=== PATIENT | male | born 1960 | race African-American/Black ===

== ENCOUNTER 2016-07-03 08:38 | Observation (INO) | payer OTHER ==
[2016-07-03] MEDS ORDERED: ASPIRIN 81 MG TABLET, CHEWABLE PO ONE (08:54)
[2016-07-03 09:46] LABS: ABSOLUTE BASOPHILS # (AUTO) 0.1 10^3/uL (0.0-0.2); ABSOLUTE EOSINOPHILS # (AUTO) 0.2 10^3/uL (0.0-0.6); ABSOLUTE LYMPHOCYTES (AUTO) 1.4 10^3/uL (0.5-4.7); ABSOLUTE MONOCYTES (AUTO) 0.5 10^3/uL (0.1-1.4); ABSOLUTE NEUT (AUTO) 1.9 10^3/uL (1.7-8.2); BASOPHILS % (AUTO) 1.6 % (0-2); EOSINOPHILS % (AUTO) 3.9 % (0-6); HEMATOCRIT 46.5 % (37.9-51.0); HEMOGLOBIN 15.7 g/dL (13.5-17.0); HGB HCT DIFFERENCE 0.6; MEAN CORPUSCULAR HEMOGLOBIN 27.5 pg (27.0-33.4); MEAN CORPUSCULAR HGB CONC 33.8 g/dL (32.0-36.0); MEAN CORPUSCULAR VOLUME 82 fl (80-97); MONOCYTES % (AUTO) 12.6 % (3-13); RED CELL DISTRIBUTION WIDTH 13.6 % (11.5-14.0); SEGMENTED NEUTROPHILS % (AUTO) 47.9 % (42-78)
[2016-07-03] MEDS ORDERED: NITROGLYCERIN 2% OINTMENT 1 GM PACKET TP ONE (09:50)
[2016-07-03 09:52] LABS: PROTHROMBIN TIME 13.1 SEC (11.4-15.4)
[2016-07-03 10:03] LABS: D-DIMER 0.29 ug/mL (0.00-0.50)
[2016-07-03 10:06] LABS: ALANINE AMINOTRANSFERASE 33 U/L (21-72); ALBUMIN 4.9 g/dL (3.5-5.0); ALKALINE PHOSPHATASE 39 U/L (38-126); ANION GAP 12 (5-19); ASPARTATE AMINO TRANSFERASE 28 U/L (17-59); BILIRUBIN,TOTAL 0.8 mg/dL (0.2-1.3); BLOOD UREA NITROGEN 16 mg/dL (7-20); CALCIUM 10.3 mg/dL (8.4-10.2); CARBON DIOXIDE 27 mmol/L (22-30); CHLORIDE 107 mmol/L (98-107); CREATINE KINASE 238 U/L (55-170); CREATININE RESULT 1.11 mg/dL (0.52-1.25); GLUCOSE 85 mg/dL (75-110); LIPASE 266.1 U/L (23-300); MAGNESIUM 2.1 mg/dL (1.6-2.3); POTASSIUM 4.1 mmol/L (3.6-5.0); SODIUM 145.5 mmol/L (137-145); TOTAL PROTEIN 7.7 g/dL (6.3-8.2)
--- NOTE | 2016-07-03 10:14 | EKG REPORT ---
SEVERITY:- BORDERLINE ECG - SINUS RHYTHM LVH BY VOLTAGE BORDERLINE T ABNORMALITIES, INFERIOR LEADS : Confirmed by: Christian Cheatham 03-Jul-2016 10:13:42
[2016-07-03 10:24] LABS: CREATINE KINASE MB 0.98 ng/mL (<4.55)
[2016-07-03 10:25] LABS: TROPONIN I < 0.012 ng/mL
--- NOTE | 2016-07-03 12:04 | ER Document Report ---
ED General - General Chief Complaint: Chest Pain Stated Complaint: CHEST PAIN TRAVEL OUTSIDE OF THE [place] IN LAST 30 DAYS: No - HPI Patient complains to provider of: chest pain short of breath Notes: Patient coming in with substernal chest pain radiating to his jaw shoulder why he was at the gym on a exercise machine. Patient denies any past cardiac history other than hypertension. Patient upon arrival states still has pain in the chest however this is minimal. Patient denies any cardiac testing patient denies smoking alcohol and drinking. Patient denies any significant past medical history from his family. - Related Data Allergies/Adverse Reactions: No Known Allergies Allergy (Unverified 07/03/16 13:32) Home Medications: Current Home Medications Tamsulosin HCl [Tamsulosin HCl] 0.4 mg PO QPM 07/03/16 [History] Past Medical History - Social History Smoking Status: Never Smoker Chew tobacco use (# tins/day): No Frequency of alcohol use: None Drug Abuse: None Family History: Reviewed & Not Pertinent Patient has suicidal ideation: No Patient has homicidal ideation: No Renal/ Medical History: Denies: Hx Peritoneal Dialysis - Immunizations Hx Diphtheria, Pertussis, Tetanus Vaccination: Yes Review of Systems - Review of Systems Constitutional: No symptoms reported EENT: No symptoms reported Cardiovascular: Chest pain Respiratory: No symptoms reported Gastrointestinal: No symptoms reported Genitourinary: No symptoms reported Male Genitourinary: No symptoms reported Musculoskeletal: No symptoms reported Skin: No symptoms reported Hematologic/Lymphatic: No symptoms reported Neurological/Psychological: No symptoms reported -: Yes All other systems reviewed and negative Physical Exam - Vital signs Vitals: Temp Pulse Resp BP Pulse Ox 97.9 F 80 20 145/75 H 98 07/03/16 08:53 07/03/16 08:53 07/03/16 08:53 07/03/16 08:53 07/03/16 08:53 Interpretation: Normal - General General appearance: Appears well, Alert - HEENT Head: Normocephalic, Atraumatic Eyes: Normal Pupils: PERRL - Respiratory Respiratory status: No respiratory distress Chest status: Nontender Breath sounds: Normal Chest palpation: Normal - Cardiovascular Rhythm: Regular Heart sounds: Normal auscultation Murmur: No - Abdominal Inspection: Normal Distension: No distension Bowel sounds: Normal Tenderness: Nontender Organomegaly: No organomegaly - Back Back: Normal, Nontender - Extremities General upper extremity: Normal inspection, Nontender, Normal color, Normal ROM , Normal temperature General lower extremity: Normal inspection, Nontender, Normal color, Normal ROM , Normal temperature, Normal weight bearing. No: Gregory's sign - Neurological Neuro grossly intact: Yes Cognition: Normal Orientation: AAOx4 Campos Coma Scale Eye Opening: Spontaneous Campos Coma Scale Verbal: Oriented Campos Coma Scale Motor: Obeys Commands [place] Coma Scale Total: 15 Speech: Normal Motor strength normal: LUE, RUE, LLE, RLE Sensory: Normal - Psychological Associated symptoms: Normal affect, Normal mood - Skin Skin Temperature: Warm Skin Moisture: Dry Skin Color: Normal Course - Re-evaluation Re-evalutation: 07/03/16 14:59 Chest pain of unclear etiology, evaluation for cardiac ischemia is indicated. Initial cardiac markers and EKG nondiagnostic. ASA and BB given unless contraindicated. Based upon the presentation the patient appears to be at low risk for other serious causes of chest pain. Plan to admit to complete cardiac evaluation and observation. - Vital Signs Vital signs: Temp Pulse Resp BP Pulse Ox 98.1 F 61 18 131/72 H 99 07/03/16 14:25 07/03/16 14:25 07/03/16 14:25 07/03/16 14:25 07/03/16 14:25 - Laboratory Result Diagrams: 07/03/16 09:15 07/03/16 09:15 Laboratory results interpreted by me: 07/03/16 07/03/16 07/03/16 09:15 09:15 11:50 RBC 5.70 H Sodium 145.5 H Calcium 10.3 H Creatine Kinase 238 H Urine Ascorbic Acid 40 H Discharge - Discharge Clinical Impression: Chest pain Qualifiers: Chest pain type: unspecified Qualified Code(s): R07.9 - Chest pain, unspecified Disposition: ADMITTED OBSERVATION Admitting Provider: [facility] Admitted: Telemetry
[2016-07-03] MEDS ORDERED: ACETAMINOPHEN 325 MG TABLET PO PRN (12:06)
[2016-07-03 12:26] LABS: AMORPHOUS SEDIMENT,URINE TRACE /HPF; APPEARANCE,URINE CLOUDY; BILIRUBIN,URINE NEGATIVE (NEGATIVE); GLUCOSE, URINE NEGATIVE (NEGATIVE); KETONES,URINE NEGATIVE (NEGATIVE); LEUKOCYTE ESTERASE,URINE NEGATIVE (NEGATIVE); NITRITE,URINE NEGATIVE (NEGATIVE); PROTEIN,URINE NEGATIVE (NEGATIVE); URINE SPECIFIC GRAVITY 1.021; UROBILINOGEN,URINE NEGATIVE mg/dL (<2.0)
[2016-07-03 12:30] LABS: URINE BARBITURATES SCREEN NEGATIVE; URINE METHADONE SCREEN NEGATIVE; URINE OPIATES LOW NEGATIVE; URINE PHENCYCLIDINE SCREEN NEGATIVE
--- NOTE | 2016-07-03 15:47 | PDOC H&P ---
History of Present Illness Admission Date/PCP: 07/03/16 12:30 MARYAM SOLO MD Patient complains of: Chest pain History of Present Illness: PASQUALE FLOREZ is a 55 year old male This is a 55-year-old male other medical problem doing the exercises morning 30 minutes and started developing chest pain and difficulty in breathing the pain is radiating to the left shoulder patient stop the exercise and went home and took some aspirin still not getting better came to the emergency department patient's was put on a Nitropatch relieved on the pain is all EKG and initial cardiac enzymes are negative is also negative any chest pain no shortness of the breath denied any nausea no vomiting. Only taking the testosterone supplements the low testosterone than that patient does not have any other medical problems Past Medical History Cardiac Medical History: Reports: None Pulmonary Medical History: Reports: None EENT Medical History: Reports: None Neurological Medical History: Reports: None Endocrine Medical History: Reports: None Renal/ Medical History: Reports: None Malignancy Medical History: Reports: None GI Medical History: Reports: None Skin Medical History: Reports: None Psychiatric Medical History: Reports: None Traumatic Medical History: Reports: None Hematology: Reports: None Infectious Medical History: Reports: None Past Surgical History Past Surgical History: Reports: None Social History Smoking Status: Never Smoker Frequency of Alcohol Use: Occasional Hx Recreational Drug Use: No Family History Family History: Reviewed & Not Pertinent Parental Family History Reviewed: Yes Children Family History Reviewed: Yes Sibling(s) Family History Reviewed.: Yes Review of Systems Constitutional: ABSENT: chills, fever(s), headache(s), weight gain, weight loss Eyes: ABSENT: visual disturbances Ears: ABSENT: hearing changes Cardiovascular: PRESENT: chest pain, dyspnea on exertion. ABSENT: edema, orthropnea, palpitations Respiratory: ABSENT: cough, hemoptysis Gastrointestinal: ABSENT: abdominal pain, constipation, diarrhea, hematemesis, hematochezia, nausea, vomiting Genitourinary: ABSENT: dysuria, hematuria Musculoskeletal: ABSENT: joint swelling Integumentary: ABSENT: rash, wounds Neurological: ABSENT: abnormal gait, abnormal speech, confusion, dizziness, focal weakness, syncope Psychiatric: ABSENT: anxiety, depression, homidical ideation, suicidal ideation Endocrine: ABSENT: cold intolerance, heat intolerance, menstrual abnormalities, polydipsia, polyuria Hematologic/Lymphatic: ABSENT: easy bleeding, easy bruising, lymphadenopathy Physical Exam Vital Signs: Temp Pulse Resp BP Pulse Ox 97.9 F 80 27 H 132/82 H 94 07/03/16 08:53 07/03/16 08:53 07/03/16 12:02 07/03/16 12:02 07/03/16 12:02 General appearance: PRESENT: no acute distress, well-developed, well-nourished Head exam: PRESENT: atraumatic, normocephalic Eye exam: PRESENT: conjunctiva pink, EOMI, PERRLA. ABSENT: scleral icterus Ear exam: PRESENT: normal external ear exam Mouth exam: PRESENT: moist, tongue midline Neck exam: PRESENT: full ROM. ABSENT: carotid bruit, JVD, lymphadenopathy, thyromegaly Cardiovascular exam: PRESENT: RRR. ABSENT: diastolic murmur, rubs, systolic murmur Pulses: PRESENT: normal dorsalis pedis pul, +2 pedal pulses bilateral Vascular exam: PRESENT: normal capillary refill GI/Abdominal exam: PRESENT: normal bowel sounds, soft. ABSENT: distended, guarding, mass, organolmegaly, rebound, tenderness Rectal exam: PRESENT: deferred Neurological exam: PRESENT: alert, awake, oriented to person, oriented to place , oriented to time, oriented to situation, CN II-XII grossly intact. ABSENT: motor sensory deficit Psychiatric exam: PRESENT: appropriate affect, normal mood. ABSENT: homicidal ideation, suicidal ideation Skin exam: PRESENT: dry, intact, warm. ABSENT: cyanosis, rash Results Impressions: Chest X-Ray 07/03/16 09:10 IMPRESSION: NO ACUTE RADIOGRAPHIC FINDING IN THE CHEST. Assessment & Plan - Diagnosis (1) Chest pain Qualifiers: Chest pain type: unspecified Qualified Code(s): R07.9 - Chest pain, unspecified Is this a current diagnosis for this admission?: YesPlan: Admitting the patient seen in the telemetry bed and get the cardiac enzymes every 63 consult the cardiology as per discussed with Dr. welch and further evaluate - Time Time Spent: 30 to 50 Minutes Medications reviewed and adjusted accordingly: Yes Within: within 24 hours - Inpatient Certification Medical Necessity: Need Close Monitoring Due to Risk of Patient Decompensation Post Hospital Care: D/C Attending Urologist Documentation - Plan Summary Plan Summary: Admission the patient's in the telemetry bed for chest pain rule out consult the cardiology
[2016-07-03 16:10] LABS: CREATINE KINASE MB 0.76 ng/mL (<4.55)
[2016-07-03 16:14] LABS: TROPONIN I < 0.012 ng/mL
--- NOTE | 2016-07-03 16:20 | PDOC CONSULTATION ---
Consultation Consult Date: 07/03/16 Attending physician:: MARYAM SOLO Consult reason:: Chest pain and palpitations History of Present Illness Admission Date/PCP: 07/03/16 12:30 MARYAM SOLO MD Patient complains of: Chest pain and palpitations History of Present Illness: PASQUALE FLOREZ is a 55 year old male Without any significant medical problem doing the exercises this morning 30 minutes and started developing chest pain and difficulty in breathing the pain is radiating to the left shoulder. Patient also felt palpitations and noticed a pulse rate of approximately 200 bpm on the monitor. Patient stopped the exercise and went home and took some aspirin still not getting better came to the emergency department patient's was put on a Nitropatch relieved on the pain is all EKG and initial cardiac enzymes are negative is also negative any chest pain no shortness of the breath denied any nausea no vomiting. Only taking the testosterone supplements for low testosterone than that patient does not have any other medical problems. Patient does describe difficulty with sleep in fact he has difficulty staying asleep. He does give history of some snoring. Past Medical History Cardiac Medical History: Reports: None Pulmonary Medical History: Reports: None EENT Medical History: Reports: None Neurological Medical History: Reports: None Endocrine Medical History: Reports: None Renal/ Medical History: Reports: None Malignancy Medical History: Reports: None GI Medical History: Reports: None Skin Medical History: Reports: None Psychiatric Medical History: Reports: None Traumatic Medical History: Reports: None Hematology: Reports: None Infectious Medical History: Reports: None Past Surgical History Past Surgical History: Reports: None Social History Information Source: Patient Smoking Status: Never Smoker Frequency of Alcohol Use: Occasional Hx Recreational Drug Use: No Drugs: None - Advance Directive Resuscitation Status: Full Code Surrogate healthcare decision maker:: Patient's Family History Family History: Reviewed & Not Pertinent Parental Family History Reviewed: Yes Children Family History Reviewed: Yes Sibling(s) Family History Reviewed.: Yes - Negative for premature coronary artery disease or sudden cardiac in the family amongst first degree relatives. Medication/Allergy Home Medications: Tamsulosin HCl [Tamsulosin HCl] 0.4 mg PO QPM 07/03/16 Allergies/Adverse Reactions: No Known Allergies Allergy (Unverified 07/03/16 13:32) Review of Systems Review of Systems: Please see history of present illness and past medical history as wall. Constitutional: No fever or chills reported. Head : No recent chronic headaches, recent head injury. Eyes: No recent eye pain, diplopia, redness, discharge, acute visual changes. Ears: No recent chronic ear pain, acute hearing loss, ear discharge. Oral cavity: No recent ulcerations, bleeding, oral cavity discomfort. Neck: No recent acute neck pain reported. Hematologic: No recent easy bruising or bleeding or hematologic malignancy reported. Lymphatic: No recent lymphatic malignancy, chronic lymphadenopathy reported yet Cardiovascular system review: See history of present illness. Respiratory system review: No recent chronic cough, hemoptysis, blood clots in the lungs reported. History of snoring and sleep difficulty. Gastrointestinal system review: Negative for any recent acute or chronic abdominal pain, hematemesis, melena, recent change in bowel habits. Genitourinary system review: No recent acute or chronic hematuria, flank pain, UTI etc. reported. Skin system review: Negative for any recent abnormal bruising, no rash, no pruritus reported. Neurologic: No prior history of strokes, mini strokes, seizure disorder. Psychologic: No history of major psychosis or depression reported. Musculoskeletal: Minor aches and pains reported. No acute joint swelling reported. Endocrine: No recent polyuria, polydipsia, recent heat or cold intolerance. Physical Exam Vital Signs: Temp Pulse Resp BP Pulse Ox 98.1 F 60 18 131/72 H 99 07/03/16 16:00 07/03/16 16:00 07/03/16 16:00 07/03/16 16:00 07/03/16 16:00 Intake & Output 07/02/16 07/03/16 07/04/16 06:59 06:59 06:59 Weight 90.9 kg Exam: GENERAL: well-nourished and in no acute distress. Alert and oriented x3 HEAD: Atraumatic, normocephalic. EYES: Pupils equal round and reactive to light, extraocular movements intact, sclera anicteric, conjunctiva are normal. ENT: TMs normal, nares patent, oropharynx clear without exudates. Moist mucous membranes. No oral ulcerations or bleeding gums noted NECK: supple without lymphadenopathy. Trachea is central. No cervical or axillary lymphadenopathy noted. Carotids are 2+, JVD WNL LUNGS: Respiration seems nonlabored, no significant accessory muscle action noted. Breath sounds clear to auscultation bilaterally and equal. No wheezes rales or rhonchi. No significant dullness noted on percussion. CHEST: Palpation of the chest wall shows no significant chest wall tenderness or abnormalities. 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 ABDOMEN: Soft, no significant tenderness appreciated, normoactive bowel sounds. No guarding, no rebound. No rigidity noted . No masses appreciated. EXTREMITIES: Pedal pulses are 1-2+, no calf tenderness noted. No clubbing or cyanosis.negative pedal edema noted NEUROLOGICAL: Focused neurological exam showed no significant neurologic deficit. Normal speech, no focal weakness appreciated. PSYCH: Normal mood, normal affect. Judgment and insight within normal limits. SKIN: No significant ecchymosis, rash, ulcerations or signs of pruritus noted. MUSCULOSKELETAL EXAM: No significant joint swelling noted. Results Laboratory Results: 07/03/16 15:35 Creatine Kinase 177 H EKG Comments: Sinus rhythm, minor nonspecific T inversion in inferior leads. Impressions: Chest X-Ray 07/03/16 09:10 IMPRESSION: NO ACUTE RADIOGRAPHIC FINDING IN THE CHEST. Assessment & Plan - Diagnosis (1) Chest pain Qualifiers: Chest pain type: unspecified Qualified Code(s): R07.9 - Chest pain, unspecified Is this a current diagnosis for this admission?: YesPlan: Patient is middle-aged therefore there is a intermediate probability that the chest discomfort came from underlying CAD. At this point would recommend MA rule out protocol and aggressive risk factor modification. Should patient rule out, will recommend a nuclear stress test/sprain stress test scheduled as an outpatient. Will order lipid panel. Recommend antiplatelet and beta janee therapy at this point. (2) Palpitations Is this a current diagnosis for this admission?: YesPlan: Patient was noted to have paroxysmal palpitations brought on by exercise. Will start patient on small dose of beta janee. (3) Sleep disorder Is this a current diagnosis for this admission?: YesPlan: Patient has flat midface and also gives history of snoring and difficulty staying asleep. In view of patient having paroxysmal palpitations, patient may benefit from a sleep study. This was discussed with the patient. (4) Low testosterone level in male Is this a current diagnosis for this admission?: YesPlan: Testosterone replacement is associated with increased cardiovascular event rate. Also low testosterone level associated with sleep apnea. - Notes Notes: CODE STATUS was discussed, patient remains full code. Surrogate decision-maker patient's . Multiple medical problems were addressed. - Time Time Spent: 30 to 50 Minutes - More than 50% of the time spent coordinating care , discussing management plans with involved caregivers. Management plans discussed with involved personnels. Medical decision making was of moderate complexity.
[2016-07-03 18:13] LABS: CHOLESTEROL 222.75 mg/dL (0-200); Direct HDL 74 mg/dL (>40); TRIGLYCERIDES 301 mg/dL (<150)
[2016-07-03 18:24] LABS: DIRECT LDL 118 mg/dL (<100)
[2016-07-03 18:31] LABS: VLDL CHOLESTEROL 60.2 mg/dL (10-31)
[2016-07-03 21:37] LABS: CREATINE KINASE MB 0.61 ng/mL (<4.55)
[2016-07-03 21:46] LABS: TROPONIN I < 0.012 ng/mL
[2016-07-03] MEDS ORDERED: ATORVASTATIN CALCIUM 10 MG TABLET PO SCH (22:00)
[2016-07-04 03:53] LABS: CREATINE KINASE MB 0.58 ng/mL (<4.55)
[2016-07-04 03:54] LABS: TROPONIN I < 0.012 ng/mL
[2016-07-04] MEDS ORDERED: LANSOPRAZOLE 30 MG TAB.RAP.DR PO SCH (06:00)
[2016-07-04] MEDS ORDERED: ENOXAPARIN SODIUM INJ 40 MG/0.4 ML DISP.SYRIN SUBCUT SCH (08:00)
[2016-07-04 08:03] VITALS: BP 122/81
[2016-07-04] MEDS ORDERED: ASPIRIN 81 MG TABLET, ENT COATED PO SCH (10:00)
--- NOTE | 2016-07-04 11:33 | EKG REPORT ---
SEVERITY:- ABNORMAL ECG - SINUS RHYTHM LEFT VENTRICULAR HYPERTROPHY BORDERLINE T ABNORMALITIES, INFERIOR LEADS : Confirmed by: Christian Cheatham 04-Jul-2016 11:32:48
--- NOTE | 2016-07-04 11:34 | EKG REPORT ---
SEVERITY:- ABNORMAL ECG - SINUS RHYTHM LEFT VENTRICULAR HYPERTROPHY NONSPECIFIC T ABNORMALITIES, INFERIOR LEADS : Confirmed by: Christian Cheatham 04-Jul-2016 11:32:53
--- NOTE | 2016-07-04 18:12 | PDOC PROGRESS REPORT ---
Subjective Progress Note for:: 07/04/16 Subjective:: Patient seems to be doing better. Pt is denying any chest arm or neck discomfort. Patient denying any PND, orthopnea. Patient denied any sustained palpitations, dizziness, syncope, near syncope. Patient denying any fever chills. Patient denying any other significant discomfort. Patient is maintaining sinus rhythm. Review of systems: Rest review of systems negative. Medications: Medications have been reviewed. Physical Exam Vital Signs: Temp Pulse Resp BP Pulse Ox 97.7 F 48 L 18 122/81 100 07/04/16 09:37 07/04/16 09:37 07/04/16 09:37 07/04/16 09:37 07/04/16 09:37 Intake & Output 07/03/16 07/04/16 07/05/16 06:59 06:59 06:59 Intake Total 600 450 Balance 600 450 Weight 90.9 kg Exam: GENERAL: well-nourished and in no acute distress. Alert and oriented x3 HEAD: Atraumatic, normocephalic. EYES: Pupils equal round and reactive to light, extraocular movements intact, sclera anicteric, conjunctiva are normal. ENT: TMs normal, nares patent, oropharynx clear without exudates. Moist mucous membranes. No oral ulcerations or bleeding gums noted NECK: supple without lymphadenopathy. Trachea is central. No cervical or axillary lymphadenopathy noted. Carotids are 2+, JVD WNL LUNGS: Respiration seems nonlabored, no significant accessory muscle action noted. Breath sounds clear to auscultation bilaterally and equal. No wheezes rales or rhonchi. No significant dullness noted on percussion. CHEST: Palpation of the chest wall shows no significant chest wall tenderness or abnormalities. 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 ABDOMEN: Soft, no significant tenderness appreciated, normoactive bowel sounds. No guarding, no rebound. No rigidity noted . No masses appreciated. EXTREMITIES: Pedal pulses are 1-2+, no calf tenderness noted. No clubbing or cyanosis.trace to 1+ pedal edema noted NEUROLOGICAL: Focused neurological exam showed no significant neurologic deficit. Normal speech, no focal weakness appreciated. PSYCH: Normal mood, normal affect. Judgment and insight within normal limits. SKIN: No significant ecchymosis, rash, ulcerations or signs of pruritus noted. MUSCULOSKELETAL EXAM: No significant joint swelling noted. Results Laboratory Results: 07/03/16 07/03/16 07/03/16 15:35 15:35 21:10 Creatine Kinase 177 H 169 CK-MB (CK-2) 0.76 Troponin I < 0.012 07/03/16 07/04/16 07/04/16 21:10 03:10 03:10 Creatine Kinase 139 CK-MB (CK-2) 0.61 0.58 Troponin I < 0.012 < 0.012 Impressions: Chest X-Ray 07/03/16 09:10 IMPRESSION: NO ACUTE RADIOGRAPHIC FINDING IN THE CHEST. Assessment & Plan - Diagnosis (1) Chest pain Qualifiers: Chest pain type: unspecified Qualified Code(s): R07.9 - Chest pain, unspecified Is this a current diagnosis for this admission?: Yes (2) Palpitations Is this a current diagnosis for this admission?: Yes (3) Sleep disorder Is this a current diagnosis for this admission?: Yes (4) Low testosterone level in male Is this a current diagnosis for this admission?: Yes - Notes Notes: Patient has done well overnight. He has had no further chest pain. No significant cardiac arrhythmias were noted on telemetry monitoring reviewed. EKG was negative for any significant ST-T wave changes. Cardiac enzymes were negative. At this point it is felt that it's safe for patient to be discharged with further follow-up as an outpatient. Have recommended that patient come off testosterone supplement. Patient to be scheduled for a 2-D echocardiogram, a nuclear stress test and a sleep study. Patient will also benefit from event monitor. Patient is agreeable to pursue these tests. - Time Time with patient: 15-25 minutes - CODE STATUS was discussed, patient remains full code. Surrogate decision-maker unchanged. Multiple medical problems were addressed.More than 50% of the time spent coordinating care, discussing management plans with involved caregivers. Management plans discussed with involved personnels. Medical decision making was of moderate complexity.
--- NOTE | 2016-07-10 16:03 | PDOC DISCHARGE SUMMARY ---
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 07/04/16 History of Present Illness History of Present Illness: PASQUALE FLOREZ is a 55 year old male This is a 55-year-old male other medical problem doing the exercises morning 30 minutes and started developing chest pain and difficulty in breathing the pain is radiating to the left shoulder patient stop the exercise and went home and took some aspirin still not getting better came to the emergency department patient's was put on a Nitropatch relieved on the pain is all EKG and initial cardiac enzymes are negative is also negative any chest pain no shortness of the breath denied any nausea no vomiting. Only taking the testosterone supplements the low testosterone than that patient does not have any other medical problems Hospital Course Hospital Course: This is a 55-year-old male is basically admitting to the hospital for the chest pain and short of breath and palpitations while doing the exercise and patient I initial cardiac workup was all negative. Patient seen by the [employer] system administrator Dr. Cheatham and all stable and suggest that patients can discharge home on a follow-up outpatient. Since denied any chest pain no shortness of the breath patients more in the hallway without any problem with Physical Exam Vital Signs: Temp Pulse Resp BP Pulse Ox 97.7 F 48 L 18 122/81 100 07/04/16 09:37 07/04/16 09:37 07/04/16 09:37 07/04/16 09:37 07/04/16 09:37 General appearance: PRESENT: no acute distress, well-developed, well-nourished Head exam: PRESENT: atraumatic, normocephalic Eye exam: PRESENT: conjunctiva pink, EOMI, PERRLA. ABSENT: scleral icterus Ear exam: PRESENT: normal external ear exam Mouth exam: PRESENT: moist, tongue midline Neck exam: PRESENT: full ROM. ABSENT: carotid bruit, JVD, lymphadenopathy, thyromegaly Cardiovascular exam: PRESENT: RRR. ABSENT: diastolic murmur, rubs, systolic murmur Pulses: PRESENT: normal dorsalis pedis pul, +2 pedal pulses bilateral Vascular exam: PRESENT: normal capillary refill GI/Abdominal exam: PRESENT: normal bowel sounds, soft. ABSENT: distended, guarding, mass, organolmegaly, rebound, tenderness Rectal exam: PRESENT: deferred Neurological exam: PRESENT: alert, awake, oriented to person, oriented to place , oriented to time, oriented to situation, CN II-XII grossly intact. ABSENT: motor sensory deficit Psychiatric exam: PRESENT: appropriate affect, normal mood. ABSENT: homicidal ideation, suicidal ideation Skin exam: PRESENT: dry, intact, warm. ABSENT: cyanosis, rash Results Laboratory Results: 07/03/16 07/03/16 07/03/16 15:35 15:35 21:10 Creatine Kinase 177 H 169 CK-MB (CK-2) 0.76 Troponin I < 0.012 07/03/16 07/04/16 07/04/16 21:10 03:10 03:10 Creatine Kinase 139 CK-MB (CK-2) 0.61 0.58 Troponin I < 0.012 < 0.012 Impressions: Chest X-Ray 07/03/16 09:10 IMPRESSION: NO ACUTE RADIOGRAPHIC FINDING IN THE CHEST. Plan Time Spent: Less than 30 Minutes - Follow outpatients cardiology for the stress test
== END 2016-07-04 10:14 | disposition home or self-care (01) ==
LOC: ER 08:38 → EH 12:30 → 4S 13:57
PROVIDERS: ADMIT Family Medicine; ATTEND Family Medicine
DX: R07.9 Chest pain, unspecified (principal); E78.5 Hyperlipidemia, unspecified; R89.1 Abnormal level of hormones in specimens from other organs, systems and tissues; R00.2 Palpitations; G47.00 Insomnia, unspecified
CPT/HCPCS: 93005 ×3; 99285; 36415 ×2; 82553 ×2; 82550 ×2; 83690; 83735; 85025; 85610; 80053; 81001; 84484 ×2; 80307; 85379; 80061; 71010; 93010 ×2; G0378 ×3

== ENCOUNTER → 2017-03-24 | Outpatient (CLI) | payer OTHER ==
[2017-03-25 13:45] LABS: PROSTATE SPECIFIC ANTIGEN 1.2 ng/mL (0.0-4.0); PSA % FREE 12.5 % (.); PSA FREE 0.15 ng/mL
== END ==
LOC: OD 07:07
PROVIDERS: ATTEND Urology
DX: N40.1 Benign prostatic hyperplasia with lower urinary tract symptoms (principal)
CPT/HCPCS: 36415; 84154